=== PATIENT | male | born 1960 | race Two or more races ===

== ENCOUNTER 2020-08-11 21:08 | Inpatient (IN) | payer MEDICAID, OTHER ==
[~2020-08-11] VITALS: Ht 172.7 cm; Wt 106.0 kg
[2020-08-11] MEDS ORDERED: MORPHINE SULF INJ 2 MG/ML SYRINGE 1ML ONE (21:23)
[2020-08-11] MEDS ORDERED: HEPARIN SODIUM (PORCINE) 5000 UNITS/ML 1ML VIAL ONE (21:23)
[2020-08-11] MEDS ORDERED: HEPARIN DRIP/D5W 100UNITS/ML 250 ML IV ONE (21:24)
[2020-08-11] MEDS ORDERED: METOPROLOL TARTRATE 25 MG TAB ONE (21:24)
[2020-08-11] MEDS ORDERED: ATORVASTATIN 20 MG TAB ONE (21:24)
[2020-08-11] MEDS ORDERED: ONDANSETRON HCL 4 MG/2 ML VIAL ONE (21:24)
[2020-08-11] MEDS ORDERED: MORPHINE SULFATE 4 MG/ML SYR/VIAL ONE (21:25)
[2020-08-11] MEDS ORDERED: MORPHINE SULFATE 4 MG/ML SYR/VIAL IV ONE (21:30)
[2020-08-11] MEDS ORDERED: ONDANSETRON HCL 4 MG/2 ML VIAL IV ONE (21:30)
[2020-08-11] MEDS ORDERED: METOPROLOL TARTRATE 25 MG TAB PO ONE (21:45)
[2020-08-11] MEDS ORDERED: HEPARIN DRIP/D5W 100UNITS/ML 250 ML IV SCH (21:45)
[2020-08-11] MEDS ORDERED: HEPARIN SODIUM (PORCINE) 5000 UNITS/ML 1ML VIAL IV ONE (21:45)
[2020-08-11] MEDS ORDERED: ATORVASTATIN 20 MG TAB PO ONE (21:45)
[2020-08-11] MEDS ORDERED: ANGIOMAX 250 MG VIAL IV ONE (21:45)
[2020-08-11] MEDS ORDERED: SODIUM CHL 0.9% 50 ML ONE (21:46)
[2020-08-11] MEDS ORDERED: fentaNYL CITRATE 100 MCG/2 ML VL ONE (21:46)
[2020-08-11] MEDS ORDERED: MIDAZOLAM HCL 1MG/1ML-2 ML VIAL ONE (21:46)
[2020-08-11] MEDS ORDERED: IODIXANOL 320MG/ML 100ML BTL IV ONE ×2 (21:47→22:25)
[2020-08-11] MEDS ORDERED: LIDOCAINE 2%HCL (LOCAL ANESTH.) INJ 20ML MDV ONE (21:47)
[2020-08-11 21:49] LABS: Basophils # (auto) 0.1 10 ^3/uL (0-0.2); Basophils % (auto) 0.6 % (0.0-2.0); Eosinophils # (auto) 0.1 10 ^3/uL (0-0.8); Eosinophils % (auto) 0.8 % (0.0-7.0); Hematocrit 47.9 % (41.0-53.0); Hemoglobin 15.7 g/dL (13.5-17.5); Lymphocytes # (auto) 3.3 10 ^3/uL (0.4-5.4); Lymphocytes % (auto) 28.3 % (10.0-50.0); Mean Corpuscular Hemoglobin 28.3 pg (28.0-32.0); Mean Corpuscular Hgb Conc. 32.8 g/dL (32.0-36.0); Mean Corpuscular Volume 86.3 fL (80.0-100.0); Monocytes # (auto) 1.2 10 ^3/uL (0-1.3); Monocytes % (auto) 10.3 % (0.0-12.0); Neutrophils # (auto) 6.9 10 ^3/uL (1.6-8.6); Nucleated Red Blood Cells % 0.2 %; Platelet Count (auto) 224 10^3/uL (140-450); Red Blood Cells 5.55 10^6/uL (4.5-5.90); Red Cell Distribution Width 13.5 % (11.8-14.3); White Blood Cell 11.5 10^3/uL (4.4-10.8)
[2020-08-11] MEDS ORDERED: EPTIFIBATIDE INJ (2MG/ML) 10ML VIAL IV ONE (22:16)
[2020-08-11 22:22] LABS: Albumin 3.7 g/dL (3.4-5.0); Magnesium 2.3 mg/dL (1.6-2.6); Potassium 3.8 mmol/L (3.5-5.1)
[2020-08-11] MEDS ORDERED: niCARdipine 25 MG/10 ML VIAL IV ONE (22:27)
[2020-08-11 22:30] LABS: BUN/Creatinine Ratio 13.3; Bilirubin, Total 0.6 mg/dL (0.2-1.0); INR 1.07 (0.9-1.15); Partial Thromboplastin Time 27.1 sec (23.0-31.2); Total Protein 7.4 g/dL (6.4-8.2)
[2020-08-11] MEDS ORDERED: TICAGRELOR 90 MG TAB ONE (22:41)
--- NOTE | 2020-08-11 23:10 | NUR ---
Report received from airport maintenance laborer nurse.
[2020-08-11] MEDS ORDERED: HYDROcodone-ACET 5/325MG TAB PO PRN (23:30)
[2020-08-11] MEDS ORDERED: MORPHINE SULF INJ 2 MG/ML SYRINGE 1ML IV PRN (23:30)
[2020-08-11] MEDS ORDERED: ONDANSETRON HCL 4 MG/2 ML VIAL IV PRN (23:30)
[2020-08-11] MEDS ORDERED: NITROGLYCERIN 0.4 MG SL TAB SL PRN (23:30)
[2020-08-11 23:35] VITALS: BP 110/71
--- NOTE | 2020-08-11 23:35 | NUR ---
ICU pt S/P Cardiac Cath Report received from JOHANA Patel. LETICIA SAMANIEGO brought to bed 109 following Cardiac catheterization, on pvc monitor and portable oxygen. Patient transferred to ICU bed, connected to ICU monitoring and oxygen. Catheter insertion site to right groin. Patient educated on need to keep leg straight and flat. Patient verbalized understanding. Site assessed for any bleeding, redness or swelling. Pedal pulses on affected leg assessed for positive tissue perfusion. Patient instructed on need to notify staff immediately if any pain, burning or wetness to site, and any lower back pain. All questions and concerns addressed, patient verbalized understanding of all education and instruction.
--- NOTE | 2020-08-11 23:50 | NUR ---
Family: RN spoke with daughter in the lobby regarding patient and admission d/t patient only speaks french and family speaks Frisian. Daughter "Gwen" was able to provide information on the patient and was also updated on patient POC.
[2020-08-12] VITALS (43 sets, daily range): BP systolic 88–121; BP diastolic 46–72
--- NOTE | 2020-08-12 | NUR ---
Heparin drip: RN was informed by dairy laboratory technician nurse that Dr. Arvizu discontinued heparin drip but this RN still saw a heparin drip order on the patient's E MAR. RN called Dr. Arvizu to clarify this order and Dr. Arvizu responded and wanted to discontinue the heparin drip. Patient should only be on NS at this time. Orders verbalized and clarified.
--- NOTE | 2020-08-12 04:33 | NUR ---
Dr. Katheryn Arvizu notified and informed of patient's morning EKG readings.
[2020-08-12 04:40] LABS: Basophils # (auto) 0.1 10 ^3/uL (0-0.2); Basophils % (auto) 0.6 % (0.0-2.0); Eosinophils # (auto) 0.1 10 ^3/uL (0-0.8); Eosinophils % (auto) 0.5 % (0.0-7.0); Hematocrit 44.4 % (41.0-53.0); Hemoglobin 14.2 g/dL (13.5-17.5); Lymphocytes # (auto) 2.2 10 ^3/uL (0.4-5.4); Lymphocytes % (auto) 18.6 % (10.0-50.0); Mean Corpuscular Hemoglobin 27.9 pg (28.0-32.0); Mean Corpuscular Hgb Conc. 31.9 g/dL (32.0-36.0); Mean Corpuscular Volume 87.2 fL (80.0-100.0); Monocytes # (auto) 1.2 10 ^3/uL (0-1.3); Monocytes % (auto) 10.1 % (0.0-12.0); Neutrophils # (auto) 8.2 10 ^3/uL (1.6-8.6); Neutrophils % (auto) 70.2 % (37.0-80.0); Nucleated Red Blood Cells % 0.1 %; Platelet Count (auto) 193 10^3/uL (140-450); Red Blood Cells 5.09 10^6/uL (4.5-5.90); Red Cell Distribution Width 13.4 % (11.8-14.3); White Blood Cell 11.6 10^3/uL (4.4-10.8)
[2020-08-12 05:09] LABS: Potassium 4.1 mmol/L (3.5-5.1)
[2020-08-12 05:12] LABS: BUN/Creatinine Ratio 10.9; Calcium 8.3 mg/dL (8.5-10.1)
--- NOTE | 2020-08-12 06:06 | NUR ---
Family: RN received call from family. Family updated on patient condition and plan of care. Family transferred to portal ICU phone and phone handed to patient. Patient speaking to his daughter. Patient appears comfortable and in no signs of discomfort or distress.
--- NOTE | 2020-08-12 07:09 | NUR ---
REPORT RECEIVED FROM HOSE SUSPENDER CUTTER RN
--- NOTE | 2020-08-12 08:11 | NUR ---
TRANSLATION USED BY QUINN PAREDESEEN OVER TELEPHONE. ALL QUESTIONS AND CONCERNS ADDRESSED WITH PLAN OF CARE DISCUSSED WITH PATIENT UNDERSTANDING
[2020-08-12] MEDS: TICAGRELOR 90 MG TAB PO SCH ×2 (08:44→22:00)
[2020-08-12] MEDS: PANTOPRAZOLE 40 MG/10 ML VIAL INJ IV SCH (08:44)
[2020-08-12] MEDS: ASPirin 81 mg TAB PO SCH (08:44)
[2020-08-12] MEDS: METOPROLOL TARTRATE 25 MG TAB PO SCH (08:46)
--- NOTE | 2020-08-12 12:41 | NUR ---
LUNCH TRAY PROVIDED TO PATIENT
[2020-08-12] MEDS: SODIUM CHLORIDE 0.9% 1,000 ML IV SCH ×2 (12:50)
--- NOTE | 2020-08-12 14:31 | NUR ---
DR. FOREMAN PAGED AWAITING CALLBACK
--- NOTE | 2020-08-12 15:32 | NUR ---
PARTIAL LINEN CHANGE PERFORMED AT THIS TIME
--- NOTE | 2020-08-12 19:00 | NUR ---
Opening Shift Note Assumed care of patient, awake and alert. No S/S of distress/SOB or pain. Instructed on POC and to call for assist PRN, will continue to monitor for changes Q1hr and PRN.
--- NOTE | 2020-08-12 19:44 | NUR ---
Dr. Arvizu called to update him on patient status. New orders received and verified.
--- NOTE | 2020-08-12 21:43 | NUR ---
Transfer report given to RN receiving patient on TELE room 287 A.
[2020-08-12] MEDS ORDERED: ATORVASTATIN 20 MG TAB PO SCH (22:00)
--- NOTE | 2020-08-12 22:00 | NUR ---
Patient transferred to room 287A via protocol with no unusual occurrences. Patient tolerated transfer well with no signs of distress.
--- NOTE | 2020-08-12 22:10 | NUR ---
Received patient from ICU after report received. Right groin incision clean, dry, and intact, bruising noted around the incision site, soft to touch. Assumed care of patient, awake and alert. No S/S of distress/SOB or pain. Instructed on POC and to call for assist PRN, will continue to monitor for changes Q1hr and PRN.
[2020-08-13 05:00] VITALS: BP 132/74
--- NOTE | 2020-08-13 06:30 | NUR ---
Patient's daughter called, updated with patient's status after verification of password. Patient has no complains at this time, no signs nor symptoms of respiratory distress. No changes in the incision site. Will give report to oncoming RN.
--- NOTE | 2020-08-13 07:30 | NUR ---
Opening Shift Note Report received and assumed care of patient,awake,alert and oriented. No S/S of distress/SOB or pain. Right groin soft top touch but ecchymosis still noted,no c/o mild pain and tenderness to site.Instructed on POC ,call light within reach patient reminded instructed to call for assistance,verbalized understanding, will continue to monitor for changes Q1hr and PRN.
--- NOTE | 2020-08-13 07:55 | NUR ---
MD VISIT DR. Rosa M FOREMAN HERE, RECEIVED ORDER TO ALLOW PATIENT TO AMBULATE AND DISCHARGE PATIENT BETWEEN 4PM TO 5 PM TODAY
[2020-08-13 08:36] VITALS: BP 117/73
--- NOTE | 2020-08-13 10:00 | NUR ---
CALLED PATIENT DAUGHTER DYLAN (PASSWORD VERIFIED) UPDATED WITH PLAN OF CARE AND DISCHARGE PLAN ,STATED SHE WILL CALL APTIENT AND EXPLAIN,
[2020-08-13] MEDS: ASPirin 81 mg TAB PO SCH (10:18)
[2020-08-13] MEDS: PANTOPRAZOLE 40 MG/10 ML VIAL INJ IV SCH (10:19)
[2020-08-13] MEDS: TICAGRELOR 90 MG TAB PO SCH (10:19)
[2020-08-13] MEDS: METOPROLOL TARTRATE 25 MG TAB PO SCH (10:19)
[2020-08-13 12:27] VITALS: BP 121/77
--- NOTE | 2020-08-13 14:13 | NUR ---
This is a 59-year-old male, patient is alert and oriented. Patient cognitive abilities are intact. Patient can perform all ADLs independently. Patient ask for SW to continue conversation with his daughter (Osman), patient gave permission for daughter to continue communication due to language barrier. Patient daughter, stated that her parents live with her brother Chris. Patient daughter stated that her dad walks independently. Patient daughter stated that her dad is unemployed, but her dad work under the table jobs. Patient daughter stated that her dad will return home post discharge. Patient daughter stated that her dad has transportation for discharge. Patient daughter stated that her dad has his and children for support system. Discharge planning: SW will follow up with patient and daughter for any home health needs prior to discharge. Patient daughter declined any services for her dad at the moment. Addendum: 08/13/20 at 1414 by LAURENT WONG SS Amended: Links added.
[2020-08-13 15:43] VITALS: BP 121/77
[2020-08-13 16:25] VITALS: BP 121/75
--- NOTE | 2020-08-13 16:27 | NUR ---
MRSA screening to nares obtain per protocol,patient was admitted in ICU,sent to lab for study
--- NOTE | 2020-08-13 16:40 | NUR ---
Discharge instructions given to patient daughter Gwen as ordered. Encourage to follow up with PMD as instructed. All questions and concerns addressed. Patient verbalized understanding. Medication reconciliation form completed and copy given to patient. IV removed with catheter intact, pressure dressing applied, Telemetry unit returned to ICU. Patient taken to vehicle via wheelchair with all personal belongings, accompanied by staff and family member. No distress noted at time of departure.
== END 2020-08-13 16:40 | disposition home or self-care (01) | DRG 174 ==
LOC: ER 21:08 → EDBD 21:08 → CATH 22:16 → TELE 22:17 → ICU WEST 23:41 → TELE-WESTW 08-12 22:38
PROVIDERS: ADMIT Specialist; ATTEND Specialist
PROC: 027034Z Dilation of Coronary Artery, One Artery with Drug-eluting Intraluminal Device, Percutaneous Approach (ICD-10-PCS; principal; 2020-08-11)
PROC: 4A023N7 Measurement of Cardiac Sampling and Pressure, Left Heart, Percutaneous Approach (ICD-10-PCS; 2020-08-11)
PROC: B2111ZZ Fluoroscopy of Multiple Coronary Arteries using Low Osmolar Contrast (ICD-10-PCS; 2020-08-11)
PROC: B2151ZZ Fluoroscopy of Left Heart using Low Osmolar Contrast (ICD-10-PCS; 2020-08-11)
PROC: B41C1ZZ Fluoroscopy of Pelvic Arteries using Low Osmolar Contrast (ICD-10-PCS; 2020-08-11)
PROC: 02C03ZZ Extirpation of Matter from Coronary Artery, One Artery, Percutaneous Approach (ICD-10-PCS; 2020-08-11)
PROC: 3E073PZ Introduction of Platelet Inhibitor into Coronary Artery, Percutaneous Approach (ICD-10-PCS; 2020-08-11)
DX: I21.19 ST elevation (STEMI) myocardial infarction involving other coronary artery of inferior wall (principal); Z79.82 Long term (current) use of aspirin
CPT/HCPCS: 36415; 71045; 75710; 80048; 80053; 83735; 83880; 84443; 84484; 85025; 85379; 85610; 85730; 86850; 86900; 86901; 87081; 92933; 93005; 93458; 99152; 99153; C1874; C9113; G0378; J2250; J2405; Q9967